=== PATIENT | female | born 2000 | race African-American/Black ===

== ENCOUNTER 2025-08-05 10:33 | Emergency (ER) | payer OTHER ==
[~2025-08-05] VITALS: Ht 149.9 cm; Wt 75.0 kg
[2025-08-05] MEDS: METHYLPREDNISOLONE SOD SUCC 125MG/2ML (ACT-O-VIAL) IV ONE (11:28)
[2025-08-05 11:50] VITALS: PULSE 114; RESP 22; O2SAT 97
[2025-08-05] MEDS: IPRATROPIUM BROMIDE (0.02%) 0.5MG/2.5ML NEB HHN SCH (11:50)
[2025-08-05] MEDS: ALBUTEROL (0.083%) 2.5MG/3ML NEB HHN SCH (11:51)
[2025-08-05] MEDS ORDERED: BECL10.62 INH (13:20)
[2025-08-05] MEDS ORDERED: ALBU90AE INH (13:20)
[2025-08-05] MEDS ORDERED: P50 PO (13:20)
[2025-08-05 14:12] VITALS: BP 130/70; PULSE 99; RESP 18; TEMP 36.4; O2SAT 100
== END 2025-08-05 14:15 | disposition home or self-care (01) ==
LOC: ER 10:33 → CANBEDREQ 13:23 → ER 14:15
DX: J45.901 Unspecified asthma with (acute) exacerbation (principal); Z79.52 Long term (current) use of systemic steroids; Z79.51 Long term (current) use of inhaled steroids; Z79.899 Other long term (current) drug therapy
CPT/HCPCS: 71045; 93005; 98960; 94644; 96374; 99285; J2919; Z7610 ×2; A4615; 94070; 94640; 94664